=== PATIENT | female | born 1935 | race Caucasian/White ===

== ENCOUNTER 2018-04-21 09:00 | Outpatient (RCR) | payer MEDICARE ==
[~2018-04-21 09:00] MED LIST: ANTIVERT12.5 MG PO; ASPIR-LOW81 MG PO; CALTRATE 600 W1 EACH PO; DOXYCYCLINE HYC50 MG PO; LASIX40 MG PO; LEVOXYL50 MCG PO; LIPITOR40 MG PO; LOPRESSOR25 MG PO; PAMELOR10 MG PO; PREMARIN0.9 MG PO; PRILOSEC OTC20 MG PO; REQUIP1 MG PO; VITAMIN B PO
== END 2018-04-23 ==
LOC: PT 09:00
PROVIDERS: ATTEND Specialist
DX: M17.0 Bilateral primary osteoarthritis of knee (principal)
CPT/HCPCS: 97110 ×6; 97162; G8978; G8979

== ENCOUNTER 2018-05-18 10:57 | Outpatient (RCR) | payer MEDICARE | END 2018-05-23 | LOC: PT 10:57 | PROVIDERS: ATTEND Specialist | DX: M17.0 Bilateral primary osteoarthritis of knee (principal); G62.9 Polyneuropathy, unspecified; M25.562 Pain in left knee; M25.561 Pain in right knee; M25.662 Stiffness of left knee, not elsewhere classified; M25.661 Stiffness of right knee, not elsewhere classified; M62.81 Muscle weakness (generalized); R26.2 Difficulty in walking, not elsewhere classified | CPT/HCPCS: 97110 ×4; 97139; G8978; G8979 ==

== ENCOUNTER 2018-06-01 08:48 | Outpatient (RCR) | payer MEDICARE | END 2018-06-23 | LOC: PT 08:48 | PROVIDERS: ATTEND Specialist | DX: M17.0 Bilateral primary osteoarthritis of knee (principal); G62.9 Polyneuropathy, unspecified; M25.562 Pain in left knee; M25.561 Pain in right knee; M25.662 Stiffness of left knee, not elsewhere classified; M25.661 Stiffness of right knee, not elsewhere classified ==